=== PATIENT | male | born 1985 | race Hispanic/Latino ===

== ENCOUNTER 2019-01-23 00:46 | Emergency (ER) | payer OTHER ==
[~2019-01-23 00:46] MED LIST: ACET-66 PO; DOXY100T2 PO; METF-444 PO; SULF1TAB42 PO; TYL3 PO
== END 2019-01-23 01:15 | disposition home or self-care (01) ==
LOC: EDH 00:46
DX: B37.49 Other urogenital candidiasis (principal); E11.9 Type 2 diabetes mellitus without complications; Z72.0 Tobacco use

== ENCOUNTER 2022-07-12 13:07 | Emergency (ER) | payer BC ==
[~2022-07-12] VITALS: Ht 162.6 cm; Wt 88.9 kg
[2022-07-12] MEDS ORDERED: CLIN-141 PO (14:46)
[2022-07-12] MEDS ORDERED: CLINDAMYCIN 150 MG CAP PO ONE (15:00)
[2022-07-12 15:17] VITALS: BP 144/98
== END 2022-07-12 15:26 | disposition home or self-care (01) ==
LOC: EDH 13:07
DX: L60.0 Ingrowing nail (principal); E11.9 Type 2 diabetes mellitus without complications; Z79.84 Long term (current) use of oral hypoglycemic drugs; Z79.899 Other long term (current) drug therapy
CPT/HCPCS: 73630; 82948